=== PATIENT | male | born 1940 | race Two or more races ===

== ENCOUNTER 2024-09-11 16:09 | Emergency (ER) | payer MEDICARE, MEDICAID ==
[~2024-09-11] VITALS: Ht 172.7 cm; Wt 73.0 kg
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
--- NOTE | 2024-09-11 16:56 | DVH ---
CLINICAL INDICATION: pain TECHNIQUE: 5 radiographic views of the cervical spine were obtained. Comparison: None FINDINGS/IMPRESSION: There is no evidence of acute fracture or dislocation. Bony spondylosis and degenerative disc changes are noted from C3 through C7. The alignment is anatomical. There is no radiopaque foreign body. HS:Y
[2024-09-11] MEDS: ACETAMINOPHEN 325 MG TAB PO ONE (18:06)
[2024-09-11] MEDS: ASPirin 81 mg TAB PO ONE (18:07)
[2024-09-11 18:08] VITALS: BP 117/53; PULSE 78; RESP 18; TEMP 98.3; O2SAT 96
--- NOTE | 2024-09-11 18:47 | DVH ---
EXAM: XY R HAND 2 VIEW XRAY CLINICAL HISTORY: pain COMPARISON: None TECHNIQUE: XY R HAND 2 VIEW XRAY Findings/Impression: 2 views of the right hand. There is no evidence of an acute fracture, dislocation, blastic, or lytic lesions. No radiopaque foreign bodies. No superficial soft tissue abnormalities.
--- NOTE | 2024-09-11 18:49 | DVH ---
EXAM: XY LUMBAR SPINE 3 VIEW INDICATION: pain COMPARISON: None TECHNIQUE: 2 views of the lumbar spine were obtained. Findings: Suboptimal visualization due to under penetration. There is no evidence of an acute fracture or spondylolisthesis. Mild spondylosis. Mild wedge shaped compression fracture of L1. No blastic or lytic lesions are appreciated. No radiopaque foreign bodies. No superficial soft tissue abnormalities. Impression: 1. No acute osseous abnormality. 2. Mild degenerative changes of the lumbar spine. 3. Mild wedge shaped compression fracture of L1.
== END 2024-09-11 18:55 | disposition home or self-care (01) ==
LOC: ER 16:09 → EDBD 16:09 → ER 18:55
DX: S32.010A Wedge compression fracture of first lumbar vertebra, initial encounter for closed fracture (principal); S16.1XXA Strain of muscle, fascia and tendon at neck level, initial encounter; J44.9 Chronic obstructive pulmonary disease, unspecified; M79.7 Fibromyalgia; Y04.2XXA Assault by strike against or bumped into by another person, initial encounter; Y93.89 Activity, other specified; Y92.89 Other specified places as the place of occurrence of the external cause; Y99.8 Other external cause status
CPT/HCPCS: 72040; 72100; 73120